=== PATIENT | female | born 1990 | race Caucasian/White ===

== ENCOUNTER 2025-03-02 23:31 | Inpatient (IN) ==
[2025-03-02] MEDS ORDERED: OXYTOCIN 30 UNITS/NSS 30 UNITS/500 ML BAG IV PRN (23:52)
[2025-03-02] MEDS ORDERED: LIDOCAINE 1% LOCAL 20 ML VIAL INFIL PRN (23:52)
[2025-03-03 00:28] LABS: Hematocrit (blood only) 33.6 % (37.0-47.0); Hemoglobin 11.2 g/dl (12.0-16.0); Mean Corpuscular Hemoglobin 28.4 pg (25.0-34.0); Mean Corpuscular Volume 85.1 fL (80.0-100.0); Platelet Count 266 K/uL (130-400); RDW Standard Deviation 43.7 fL (36.4-46.3); Red Blood Count 3.95 M/uL (4.20-5.40); White Blood Count 11.69 K/ul (4.8-10.8)
[2025-03-03] MEDS: PENICILLIN GK 6 MU in DEXTROSE 5% 250 ML IV STA (00:34)
--- NOTE | 2025-03-03 00:41 | History & Physical Report ---
Date of Service March 03, 2025 Assessment & Plan (1) Supervision of normal first : Plan: Admit to L&D. EFM/toco. Labs. PCN for GBS+. OK for epidural if she desires. At this point, active labor pattern of contractions, she is agreeable to pitocin if ctx slow. Admission and Anticipated Discharge Date Admission Date: March 02, 2025 History of Present Illness Chief Complaint: labor Primary Care Provider: Sugey Wood MD 34yo @ 37 09/10, presented to L&D after SROM at home, clear fluid at approximately 10pm. + movement, no vaginal bleeding, starting to feel contractions. GBS+ Allergies Allergy/AdvReac Type Severity Reaction Status Date / Time No Known Allergies Allergy Verified 03/02/25 23:50 Home Medications Medication Instructions Recorded Confirmed Type magnesium 200 mg tablet 200 mg PO DAILY 02/13/25 03/02/25 History vits no.124-ferrous fum 1 tab PO DAILY 02/13/25 03/02/25 History 27 mg iron-folic acid 800 mcg tablet ( Vitamin) Patient History Medical History Varicella vaccination Acid reflux Heartburn Elevated liver enzymes Arm pain Surgical History S/P colonoscopy S/P wisdom tooth extraction Family History Mother Breast cancer Grandmother (Maternal) Colorectal cancer Stroke Grandmother (Paternal) Colorectal cancer Father Factor V Leiden Denies family history of Ovarian cancer Social History Smoking Status: Never smoker Do You Dip or Chew Tobacco: No; Hx Alcohol Use: No Hx Substance Use: No Preferred Language: Guyanese marital status: marital status details: Cholo Lamar (42) [phone] Current Living Situation: Spouse Current Living Situation Comment: lives with spouse, fish, dog current occupational status: employed 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 No s/s chorio or abruption. Skin: no rashes, warm and dry Psychiatric: A+Ox3, euthymic affect Results & Data Vital Signs (Past 12 Hours) Vital Signs Pulse BP 03/02/25 23:40 84 136/75 Coding Level of Care Code None Diagnoses Supervision of normal first Z34.00
[2025-03-03] MEDS: LACTATED RINGER'S 1,000 ML IV PRN (01:40)
[2025-03-03] MEDS: PENICILLIN GK 3 MU in DEXTROSE 5% 100 ML IV PRN (04:30)
[2025-03-03] MEDS ORDERED: ONDANSETRON INJ 2 MG/ML 2 ML VIAL IV PRN (05:27)
[2025-03-03] MEDS ORDERED: NALBUPHINE HCL INJ 10 MG/ML AMP IV PRN (05:27)
[2025-03-03] MEDS ORDERED: ROPIVACAINE 0.5% PF 5 MG/ML 20 ML VIAL EPI PRN (05:27)
[2025-03-03] MEDS ORDERED: NALOXONE HCL 1 MG in SODIUM CHLORIDE 0.9% 1,000 ML IV PRN (05:27)
[2025-03-03] MEDS ORDERED: diphenhydrAMINE 50 MG/ML VIAL IV PRN (05:27)
[2025-03-03] MEDS ORDERED: BUPIVACAINE 0.25% PF 30 ML VIAL EPI PRN (05:27)
[2025-03-03] MEDS ORDERED: fentANYL 2 MCG/ML BUPIVacaine 0.125%-NSS 100ML BAG EPI PRN (05:27)
[2025-03-03] MEDS ORDERED: SODIUM CHLORIDE 0.9% PF INJ 10 ML VIAL EPI PRN (05:27)
[2025-03-03] MEDS ORDERED: LIDOCAINE 2% MPF LOCAL 5 ML VIAL EPI PRN (05:27)
[2025-03-03] MEDS ORDERED: NALOXONE HCL 0.4 MG/1 ML VIAL/CARP IV PRN (05:27)
--- NOTE | 2025-03-03 05:31 | Anesthesiology Consultation ---
Date of Service March 03, 2025 Assessment & Plan Chart Review Chart Review: Patient NOT seen in Pre Admission Testing and Acceptable Risk for Labor Epidural Consults Requested none ASA ASA2 Proposed Anesthesia Anesthesia Type: Labor Epidural Risk / Benefits Reviewed With: PT / POA / Parent / Guardian, Accepts Plan and Informed Consent Obtained History Height/Weight Height: 5 ft 5.5 in Weight: 93.894 kg Allergies Allergy/AdvReac Type Severity Reaction Status Date / Time No Known Allergies Allergy Verified 03/02/25 23:50 Medications Home Medications Medication Instructions Recorded Confirmed Last Taken magnesium 200 mg tablet 200 mg PO DAILY 02/13/25 03/02/25 03/01/25 21:00 vits no.124-ferrous fum 1 tab PO DAILY 02/13/25 03/02/25 03/02/25 09:00 27 mg iron-folic acid 800 mcg tablet ( Vitamin) Active Medications Generic Name Dose Route Start Last Admin Trade Name Freq PRN Reason Stop Dose Admin Lactated Ringer's 1,000 mls @ 125 mls/hr 03/02/25 23:52 03/03/25 05:14 Lr IV 03/04/25 23:51 999 mls/hr .Q8H PRN Infusion L&D Protocol Protocol Penicillin G Potassium 3 mu/ 106 mls @ 100 mls/hr 03/03/25 02:53 03/03/25 04:30 Dextrose IV 03/13/25 02:52 100 mls/hr Q4H PRN Administration GBS(+) Until Delivery NPO Date Last Intake of Fluids: 03/03/25 Time Last Intake of Fluids: 03:00 Date Last Intake of Solids: 03/02/25 Time Last Intake of Solids: 22:00 Past Medical History Medical History Varicella vaccination Acid reflux Heartburn Exercise / Class Metabolic Activity 1 > 8 Run/Swim/Ski/Tennis Past Family History Family History Mother Breast cancer Grandmother (Maternal) Colorectal cancer Stroke Grandmother (Paternal) Colorectal cancer Father Factor V Leiden Denies family history of Ovarian cancer Past Surgical History Surgical History S/P colonoscopy S/P wisdom tooth extraction Past Anesthesia History No Hx of Anesthesia Complications History of PONV No Hx of PONV and No Hx of Motion Sickness Social History Smoking Status: Never smoker Do You Dip or Chew Tobacco: No Hx Alcohol Use: No Hx Substance Use: No Physical Exam Vital Signs Last Vital Signs Temp 36.5 C 03/03/25 03:42 Pulse 75 03/03/25 03:10 Resp 16 03/03/25 03:42 BP 130/76 03/03/25 03:10 ENMT Mouth: no TMJ abnormality Thyromental Distance: > or= 3.5 Finger Breadths Mallampati Class: II Neck normal visual inspection and trachea midline; neck extension not limited Respiratory normal respiratory effort Auscultation: lungs clear to auscultation bilaterally Cardiovascular Rate/Rhythm: regular rate and regular rhythm Heart Sounds: no murmur Musculoskeletal Spine: normal cervical ROM Extremities: full ROM of extremities Neurologic moves all extremities Psychiatric Orientation: alert and oriented x 3 Testing Laboratory Results 03/03/25 00:08
[2025-03-03] MEDS: BUPIVACAINE 0.25% PF 30 ML VIAL ONE (05:54)
[2025-03-03] MEDS: fentANYL 2 MCG/ML BUPIVacaine 0.125%-NSS 100ML BAG ONE (06:01)
[2025-03-03] MEDS: BUPIVACAINE 0.25% PF 30 ML VIAL EPI STA (06:43)
[2025-03-03] MEDS: SODIUM CHLORIDE 0.9% PF INJ 10 ML VIAL ONE (06:43)
[2025-03-03] MEDS: LIDOCAINE 2%/EPINEPHRINE 1:200,000 20 ML PF ONE (06:43)
[2025-03-03] MEDS: LIDOCAINE 2%/EPINEPHRINE 1:200,000 20 ML PF EPI STA (06:44)
[2025-03-03] MEDS: SODIUM CHLORIDE 0.9% PF INJ 10 ML VIAL EPI STA (06:44)
--- NOTE | 2025-03-03 07:31 | Labor Progress Brief Note ---
Date of Service March 03, 2025 Subjective Comfortable with epidural. FHT Cat 1 [place] - ctx spaced after epidural. SVE 5-6cm per RN Will start pitocin. Assessment & Plan Admission and Anticipated Discharge Date Admission Date: March 02, 2025 Results & Data Vital Signs (Past 12 Hours) Vital Signs Temp Pulse Resp BP Pulse Ox 03/03/25 07:26 75 98 03/03/25 07:21 99 H 99 03/03/25 07:16 83 98 03/03/25 07:15 36.9 C 20 03/03/25 07:15 81 105/59 L 03/03/25 07:11 96 H 100 03/03/25 07:06 79 97 03/03/25 07:01 87 98 03/03/25 07:00 18 03/03/25 07:00 18 03/03/25 06:59 88 109/58 L 03/03/25 06:56 79 96 03/03/25 06:53 94 H 93/54 L 03/03/25 06:51 86 98 03/03/25 06:49 84 111/64 03/03/25 06:46 90 97 03/03/25 06:43 96 H 100/58 L 03/03/25 06:41 89 97 03/03/25 06:39 86 100/59 L 03/03/25 06:36 89 98 03/03/25 06:35 99 H 104/60 03/03/25 06:31 90 96 03/03/25 06:30 18 03/03/25 06:30 18 03/03/25 06:29 88 117/66 03/03/25 06:26 102 H 98 03/03/25 06:23 83 115/60 03/03/25 06:21 79 97 03/03/25 06:19 88 110/59 L 03/03/25 06:16 101 H 99 03/03/25 06:13 90 116/63 03/03/25 06:11 97 03/03/25 06:11 89 03/03/25 06:11 93 H 111/60 03/03/25 06:09 88 121/68 03/03/25 06:07 83 117/66 03/03/25 06:06 86 97 03/03/25 06:05 96 H 115/65 03/03/25 06:03 83 114/59 L 03/03/25 06:01 85 18 115/57 L 97 03/03/25 05:59 83 115/57 L 03/03/25 05:57 82 117/55 L 03/03/25 05:56 82 97 03/03/25 05:55 36.9 C 84 113/57 L 03/03/25 05:53 88 124/67 03/03/25 05:51 97 03/03/25 05:51 93 H 03/03/25 05:51 95 H 124/70 03/03/25 05:49 95 H 134/76 03/03/25 05:46 83 98 03/03/25 05:41 91 H 98 03/03/25 05:40 90 137/69 03/03/25 03:42 16 03/03/25 03:42 36.5 C 16 03/03/25 03:10 75 130/76 03/03/25 01:45 36.8 C 03/02/25 23:54 36.9 C 84 18 136/75 03/02/25 23:40 84 136/75 Coding Level of Care Code None
[2025-03-03] MEDS: OXYTOCIN 30 UNITS/NSS 30 UNITS/500 ML BAG IV PRN (07:34)
--- NOTE | 2025-03-03 08:47 | Labor Progress Brief Note ---
Date of Service March 03, 2025 Subjective taking over care of patient. comfortable Assessment & Plan (1) Normal labor: Plan ctx spaced since epidrual. Will start pitocin. Fetus overall reassuring with an occasional variable noted. Admission and Anticipated Discharge Date Admission Date: March 02, 2025 Physical Exam Physical Exam: cx--5cm per nursing toco--spaced since epidural efm--130s with mod variability, occasional variable noted Results & Data Vital Signs (Past 12 Hours) Vital Signs Temp Pulse Resp BP Pulse Ox 03/03/25 08:41 79 100 03/03/25 08:36 82 99 03/03/25 08:31 82 98 03/03/25 08:30 79 101/52 L 03/03/25 08:26 89 100 03/03/25 08:21 86 98 03/03/25 08:16 82 106/54 L 96 03/03/25 08:11 73 96 03/03/25 08:06 72 96 03/03/25 08:01 75 97 03/03/25 08:00 73 91/53 L 03/03/25 07:56 82 98 03/03/25 07:51 77 96 03/03/25 07:46 77 97 03/03/25 07:45 76 99/53 L 03/03/25 07:41 87 98 03/03/25 07:36 91 H 99 03/03/25 07:31 75 99 03/03/25 07:30 78 18 94/52 L 03/03/25 07:26 75 98 03/03/25 07:21 99 H 99 03/03/25 07:16 83 98 03/03/25 07:15 36.9 C 20 03/03/25 07:15 81 105/59 L 03/03/25 07:11 96 H 100 03/03/25 07:06 79 97 03/03/25 07:01 87 98 03/03/25 07:00 18 03/03/25 07:00 18 03/03/25 06:59 88 109/58 L 03/03/25 06:56 79 96 03/03/25 06:53 94 H 93/54 L 03/03/25 06:51 86 98 03/03/25 06:49 84 111/64 03/03/25 06:46 90 97 03/03/25 06:43 96 H 100/58 L 06/30/25 06:41 89 97 03/03/25 06:39 86 100/59 L 03/03/25 06:36 89 98 03/03/25 06:35 99 H 104/60 03/03/25 06:31 90 96 03/03/25 06:30 18 03/03/25 06:30 18 03/03/25 06:29 88 117/66 03/03/25 06:26 102 H 98 03/03/25 06:23 83 115/60 03/03/25 06:21 79 97 03/03/25 06:19 88 110/59 L 03/03/25 06:16 101 H 99 03/03/25 06:13 90 116/63 03/03/25 06:11 97 03/03/25 06:11 89 03/03/25 06:11 93 H 111/60 03/03/25 06:09 88 121/68 03/03/25 06:07 83 117/66 03/03/25 06:06 86 97 03/03/25 06:05 96 H 115/65 03/03/25 06:03 83 114/59 L 03/03/25 06:01 85 18 115/57 L 97 03/03/25 05:59 83 115/57 L 03/03/25 05:57 82 117/55 L 03/03/25 05:56 82 97 03/03/25 05:55 36.9 C 84 113/57 L 03/03/25 05:53 88 124/67 03/03/25 05:51 97 03/03/25 05:51 93 H 03/03/25 05:51 95 H 124/70 03/03/25 05:49 95 H 134/76 03/03/25 05:46 83 98 03/03/25 05:41 91 H 98 03/03/25 05:40 90 137/69 03/03/25 03:42 16 03/03/25 03:42 36.5 C 16 03/03/25 03:10 75 130/76 03/03/25 01:45 36.8 C 03/02/25 23:54 36.9 C 84 18 136/75 03/02/25 23:40 84 136/75 Coding Level of Care Code None Diagnoses Normal labor O80; Z37.9
--- NOTE | 2025-03-03 11:38 | Labor Progress Brief Note ---
Date of Service March 03, 2025 Subjective n/v, bloody show Assessment & Plan (1) Normal labor: Plan begin second stage. Overall reassurin fetus. Admission and Anticipated Discharge Date Admission Date: March 02, 2025 Physical Exam Physical Exam: cx--c/c/+1 toco--q2-4min efm--130s with mod variability, +scalp stim, variables with some contractions and some earlies Results & Data Vital Signs (Past 12 Hours) Vital Signs Temp Pulse Resp BP Pulse Ox 03/03/25 11:31 101 H 97 03/03/25 11:30 92 H 18 114/67 03/03/25 11:26 111 H 99 03/03/25 11:21 97 H 99 03/03/25 11:16 98 03/03/25 11:16 102 H 03/03/25 11:16 93 H 118/70 03/03/25 11:11 98 H 99 03/03/25 11:06 111 H 96 03/03/25 11:01 100 H 100 03/03/25 11:00 36.8 C 82 18 107/64 03/03/25 10:56 84 98 03/03/25 10:51 93 H 97 03/03/25 10:47 81 102/61 03/03/25 10:46 86 98 03/03/25 10:41 100 H 98 03/03/25 10:36 83 97 03/03/25 10:31 88 97 03/03/25 10:30 89 104/63 03/03/25 10:26 86 99 03/03/25 10:21 85 97 03/03/25 10:16 86 98 03/03/25 10:15 87 105/63 03/03/25 10:11 89 98 03/03/25 10:06 84 97 03/03/25 10:02 86 103/66 03/03/25 10:01 84 98 03/03/25 10:00 20 03/03/25 10:00 20 03/03/25 09:56 83 97 03/03/25 09:51 90 99 03/03/25 09:47 92 H 112/62 03/03/25 09:46 94 H 98 03/03/25 09:41 106 H 98 03/03/25 09:36 97 H 99 03/03/25 09:31 101 H 99 03/03/25 09:30 18 03/03/25 09:30 18 03/03/25 09:26 82 100 03/03/25 09:21 76 98 03/03/25 09:16 98 03/03/25 09:16 83 03/03/25 09:16 84 106/57 L 03/03/25 09:11 79 99 03/03/25 09:06 83 98 03/03/25 09:01 100 03/03/25 09:01 82 03/03/25 09:01 75 110/56 L 03/03/25 09:00 18 03/03/25 09:00 18 03/03/25 08:56 88 100 03/03/25 08:51 84 100 03/03/25 08:46 100 03/03/25 08:46 81 03/03/25 08:46 75 101/51 L 03/03/25 08:41 79 100 03/03/25 08:36 82 99 03/03/25 08:31 82 98 03/03/25 08:30 79 18 101/52 L 03/03/25 08:26 89 100 03/03/25 08:21 86 98 03/03/25 08:16 82 106/54 L 96 03/03/25 08:11 73 96 03/03/25 08:06 72 96 03/03/25 08:01 75 97 03/03/25 08:00 73 91/53 L 03/03/25 07:56 82 98 03/03/25 07:51 77 96 03/03/25 07:46 77 97 03/03/25 07:45 76 99/53 L 03/03/25 07:41 87 98 03/03/25 07:36 91 H 99 03/03/25 07:31 75 99 03/03/25 07:30 78 18 94/52 L 03/03/25 07:26 75 98 03/03/25 07:21 99 H 99 03/03/25 07:16 83 98 03/03/25 07:15 36.9 C 20 03/03/25 07:15 81 105/59 L 03/03/25 07:11 96 H 100 03/03/25 07:06 79 97 03/03/25 07:01 87 98 03/03/25 07:00 18 03/03/25 07:00 18 03/03/25 06:59 88 109/58 L 03/03/25 06:56 79 96 03/03/25 06:53 94 H 93/54 L 03/03/25 06:51 86 98 03/03/25 06:49 84 111/64 03/03/25 06:46 90 97 03/03/25 06:43 96 H 100/58 L 03/03/25 06:41 89 97 03/03/25 06:39 86 100/59 L 03/03/25 06:36 89 98 03/03/25 06:35 99 H 104/60 03/03/25 06:31 90 96 03/03/25 06:30 18 03/03/25 06:30 18 03/03/25 06:29 88 117/66 03/03/25 06:26 102 H 98 03/03/25 06:23 83 115/60 03/03/25 06:21 79 97 03/03/25 06:19 88 110/59 L 03/03/25 06:16 101 H 99 03/03/25 06:13 90 116/63 03/03/25 06:11 97 03/03/25 06:11 89 03/03/25 06:11 93 H 111/60 03/03/25 06:09 88 121/68 03/03/25 06:07 83 117/66 03/03/25 06:06 86 97 03/03/25 06:05 96 H 115/65 03/03/25 06:03 83 114/59 L 03/03/25 06:01 85 18 115/57 L 97 03/03/25 05:59 83 115/57 L 03/03/25 05:57 82 117/55 L 03/03/25 05:56 82 97 03/03/25 05:55 36.9 C 84 113/57 L 03/03/25 05:53 88 124/67 03/03/25 05:51 97 03/03/25 05:51 93 H 03/03/25 05:51 95 H 124/70 03/03/25 05:49 95 H 134/76 03/03/25 05:46 83 98 03/03/25 05:41 91 H 98 03/03/25 05:40 90 137/69 03/03/25 03:42 16 03/03/25 03:42 36.5 C 16 03/03/25 03:10 75 130/76 03/03/25 01:45 36.8 C 03/02/25 23:54 36.9 C 84 18 136/75 03/02/25 23:40 84 136/75 Coding Level of Care Code None Diagnoses Normal labor O80; Z37.9
[2025-03-03] MEDS ORDERED: OXYTOCIN 30 UNITS/NSS 30 UNITS/500 ML BAG IV PRN (14:25)
[2025-03-03] MEDS ORDERED: HYDROCORTISONE ACETATE 25 MG SUPP PR PRN (14:25)
--- NOTE | 2025-03-03 15:20 | Delivery Summary ---
Vaginal Delivery Summary Date of Service March 03, 2025 Vaginal Delivery Summary and 2nd Degree LAC Pre-operative Diagnosis: at term srom Post-operative Diagnosis: same Procedure: pitocin augmentation epidural second degree laceration and repair qBL: 150cc Anesthesia: epidural Procedure: Patient presented to labor and delivery with srom. She got pitocin and epidural. She progressed to c/c/+1. PUshed for 30 min without much descent . After 30 min of laboring down, she resumed pushing again. The patient pushed for about 2 hours to deliver a viable male infant in gm position. The nose and mouth were bulb suctioned on the perineum and the rest of the infant was then delivered without difficulty through a nuchal/body cord. The baby was vigorous. The nose and mouth were again bulb suctioned and the infant was placed in the maternal abdomen for drying and attention. Cord was clamped and cut at one minute of life. Cord blood and segment obtained. Placenta delivered spontaneous, intact with a three vessel cord. Cervix/sulci/rectum were intact. A second degree perineal laceration was repaired in the normal standard fashion. Hemostasis obtained with dilute pitocin and fundal massage. Apgars were 8/9. Mother and baby doing well at the end of the delivery. [facility] Vaginal Delivery Charge Delivery Type Details: and 2nd Degree LAC
[2025-03-03] MEDS: DIPHTHER/TETAN/PERTUS Vaccine (Tdap, Adol/Adult) 0.5mL IM ONE (15:32)
--- NOTE | 2025-03-03 16:04 | Anesthesia Procedure Note ---
Date of Service March 03, 2025 Anesthesia Post Epidural Note Vital Signs Vital Signs: Temp Pulse Resp BP Pulse Ox 36.8 C 98 H 18 127/62 96 03/03/25 11:00 03/03/25 15:49 03/03/25 15:05 03/03/25 15:49 03/03/25 14:19 Notes Mental Status: alert / awake / arousable and participated in evaluation Nausea / Vomiting: adequately controlled Pain: adequately controlled Airway Patency, RR, SpO2: stable & adequate BP & HR: stable & adequate Hydration State: stable & adequate Neuraxial Anesthesia: was administered and sensory block resolved Anesthetic Complications: no major complications apparent and Pt Satisfied with anesthetic care Epidural: Removed without complications and With tip intact
[2025-03-03] MEDS: BENZOCAINE 20% SPRY 85 APPLN/85 GM CAN EXT PRN (18:36)
[2025-03-03] MEDS: DOCUSATE SODIUM 100 MG CAP PO SCH (21:26)
[2025-03-03] MEDS: ACETAMINOPHEN 325 MG TAB PO PRN (21:30)
[2025-03-04] MEDS: IBUPROFEN 600 MG TAB PO PRN (02:04)
--- NOTE | 2025-03-04 05:36 | Obstetrical Progress Note ---
Date of Service March 04, 2025 Assessment & Plan (1) Encounter for assessment: Plan Doing well pp day 1. Routine care. Day #:: 1 Subjective Ambulation: ambulating normally Voiding: no voiding problems Passing Gas:: Yes Diet Tolerance:: regular diet Lochia:: Small Feeding Type:: breast feeding Physical Exam Constitutional WD/WN, vitals as above Respiratory normal respiratory effort, lungs clear to auscultation Cardiovascular RRR, no murmur, no edema Extremities: no calf tenderness and no edema Gastrointestinal (Abdomen) soft, nt, nd, ff/nt 1 below u Psychiatric A+Ox3, euthymic affect Results & Data Vital Signs (Past 12 Hours) Vital Signs Temp Pulse Resp BP Pulse Ox O2 Del Method 03/04/25 04:00 37.0 C 90 16 118/74 97 Room Air 03/04/25 00:45 37.0 C 86 16 112/66 96 Room Air 03/03/25 19:45 37.0 C 89 16 118/71 96 Room Air
[2025-03-04 06:26] LABS: Hematocrit (blood only) 30.2 % (37.0-47.0); Hemoglobin 10.1 g/dl (12.0-16.0)
[2025-03-04] MEDS: PRENATAL VITAMIN 1 TAB PO SCH (07:37)
[2025-03-04 20:02] VITALS: RESP 16
--- NOTE | 2025-03-05 07:51 | Obstetrical Progress Note ---
Date of Service March 05, 2025 Assessment & Plan (1) Encounter for assessment: Ready for d/c home today, instructions reviewed. Subjective Ambulation: ambulating normally Voiding: no voiding problems Passing Gas:: Yes Diet Tolerance:: regular diet Lochia:: Small Feeding Type:: breast feeding Physical Exam Constitutional WD/WN, vitals as above Eyes PERRL, conjunctivae normal, anicteric sclerae Neck normal visual inspection Respiratory normal respiratory effort and able to speak in complete sentences; no respiratory distress and no labored breathing Cardiovascular Rate/Rhythm: regular rate and regular rhythm Extremities: no edema Chest (Breasts) Chest: normal inspection of chest Gastrointestinal (Abdomen) Inspection/Auscultation: abdomen normal to inspection Soft, postgravid Psychiatric A+Ox3, euthymic affect Genitourinary OB Exam Abdomen: + fundal height Fundus: + firm and + relation to umbilicus (fundus just below umbilicus); not tender Results & Data Vital Signs (Past 12 Hours) Vital Signs Temp Pulse Resp BP Pulse Ox O2 Del Method 03/05/25 00:15 97.7 F 75 16 121/76 97 Room Air
[2025-03-05 08:01] VITALS: BP 133/83; TEMP 98.4; O2SAT 98
[2025-03-05 08:40] VITALS: PULSE 73
== END 2025-03-05 10:48 | disposition home or self-care (01) | DRG 807 ==
LOC: OPB 23:31 → 4S1 23:31 → 4E2 03-03 17:00